=== PATIENT | female | born 1995 | race African-American/Black ===

== ENCOUNTER 2024-02-13 21:05 | Emergency (ER) | payer MEDICAID ==
[~2024-02-13] VITALS: Ht 167.6 cm; Wt 79.5 kg
[2024-02-13 21:12] VITALS: BP 104/54; PULSE 69; RESP 16; TEMP 98.1
[2024-02-13] MEDS ORDERED: IBUP-1554 PO (22:20)
[2024-02-13] MEDS ORDERED: ACET-66 PO (22:20)
[2024-02-13] MEDS ORDERED: METH-659 PO (22:20)
[2024-02-13] MEDS: IBUPROFEN 600 MG TABLET PO ONE (22:23)
[2024-02-13] MEDS: ACETAMINOPHEN 500 MG TABLET PO ONE (22:23)
[2024-02-13] MEDS: METHOCARBAMOL 500 MG TABLET PO ONE (22:23)
== END 2024-02-13 22:45 | disposition home or self-care (01) ==
LOC: EMS 21:08
DX: S39.012A Strain of muscle, fascia and tendon of lower back, initial encounter (principal); M79.10 Myalgia, unspecified site; X50.0XXA Overexertion from strenuous movement or load, initial encounter; Y93.89 Activity, other specified; Y92.89 Other specified places as the place of occurrence of the external cause; Y99.8 Other external cause status
CPT/HCPCS: 99284; Z7502; Z7610

== ENCOUNTER 2024-02-17 14:22 | Emergency (ER) | payer MEDICAID ==
[~2024-02-17] VITALS: Ht 170.2 cm; Wt 81.8 kg
[~2024-02-17 14:22] MED LIST: ACET-66 PO; IBUP-1554 PO; METH-659 PO
[2024-02-17 14:34] VITALS: TEMP 97.9
[2024-02-17] MEDS: KETOROLAC TROMETHAMINE 30 MG/ML VIAL IM ONE (15:11)
[2024-02-17] MEDS: LIDOCAINE 5% TRANSDERMAL PATCH TD ONE (15:12)
[2024-02-17] MEDS: TraMADol HCL 50 MG TABLET PO ONE (15:12)
[2024-02-17 15:31] LABS: EOSINOPHILS % (AUTO) 2.1 % (1.0-6.0); HEMATOCRIT 40.9 % (36-46); HEMOGLOBIN 13.3 g/dL (12.0-16.0); LYMPHOCYTES % (AUTO) 43.8 % (22.0-44.0); MEAN CORPUSCULAR HEMOGLOBIN 28.7 pg (26.0-34.0); MEAN CORPUSCULAR HGB CONC 32.6 G/dL (31.0-37.0); MEAN CORPUSCULAR VOLUME 88 fL (80-100); MONOCYTES # (AUTO) 0.3 K/uL (0.1-1.0); MONOCYTES % (AUTO) 5.7 % (2.0-9.0); NEUTROPHILS # (AUTO) 2.2 K/uL (1.8-7.7); NEUTROPHILS % (AUTO) 47.4 % (40.0-70.0); PLATELET COUNT (AUTO) 250 K/uL (150-450); RED BLOOD CELL COUNT(AUTO) 4.64 MIL/uL (4.00-5.20); RED CELL DISTRIBUTION WIDTH 13.9 % (11.5-14.5); WHITE BLOOD COUNT (AUTO) 4.7 K/uL (4.5-11.0)
[2024-02-17 15:41] LABS: ANION GAP 8 mmol/L (8-16); CALCIUM, TOTAL 9.6 mg/dL (8.8-10.5); CARBON DIOXIDE 27 mmol/L (22-29); CHLORIDE 106 mmol/L (98-107); CREATININE 0.68 mg/dL (0.60-1.30); GLOMERULAR FILTR. RATE CALC > 60 mL/min (>60); GLUCOSE,RANDOM 97 mg/dL (70-110); SODIUM SERUM 141 mmol/L (136-145); UREA NITROGEN, BLOOD 15 mg/dL (7-18)
[2024-02-17 15:46] LABS: ALANINE AMINOTRANSFERASE 27 U/L (12-78); ALBUMIN 3.7 g/dL (3.4-5.0); ALKALINE PHOSPHATASE 90 U/L (46-116); ASPARTATE AMINOTRANSFERASE 15 U/L (15-37); BILIRUBIN,TOTAL 0.2 mg/dL (0.1-1.0); TOTAL PROTEIN, SERUM 8.2 g/dL (6.4-8.2)
[2024-02-17 16:23] LABS: APPEARANCE,URINE CLEAR (CLEAR); BILIRUBIN,URINE NEGATIVE (NEGATIVE); COLOR,URINE LIGHT YELLOW (YELLOW); GLUCOSE, URINE (UA) NEGATIVE (NEGATIVE); KETONES,URINE NEGATIVE (NEGATIVE); LEUKOCYTE ESTERASE ,URINE NEGATIVE (NEGATIVE); NITRATE,URINE NEGATIVE (NEGATIVE); OCCULT BLOOD,URINE NEGATIVE (NEGATIVE); PH,URINE 7.5 (5.0-8.0); PROTEIN,URINE NEGATIVE (NEGATIVE); SPECIFIC GRAVITIY, URINE 1.028 (1.003-1.030); UROBILINOGEN,URINE <=1.0 mg/dL (<=1.0)
[2024-02-17 16:24] LABS: HCG,QUAL URINE NEGATIVE (NEGATIVE)
[2024-02-17 17:25] VITALS: BP 101/60; PULSE 64; RESP 18
[2024-02-17] MEDS ORDERED: LIDO700A15 TP (17:43)
== END 2024-02-17 18:15 | disposition home or self-care (01) ==
LOC: EMS 14:22
DX: S39.012A Strain of muscle, fascia and tendon of lower back, initial encounter (principal); X50.0XXA Overexertion from strenuous movement or load, initial encounter; Y93.89 Activity, other specified; Y92.89 Other specified places as the place of occurrence of the external cause; Y99.8 Other external cause status
CPT/HCPCS: 99284; 80053; 81003; 84703; 85025; 36415; 74022; 96372; J1885